=== PATIENT | male | born 1990 | race Caucasian/White ===

== ENCOUNTER 2020-08-23 10:36 | Emergency (ER) | payer OTHER, SELFPAY ==
[2020-08-23 10:53] VITALS: BP 122/72; PULSE 84; RESP 18; TEMP 36.7; O2SAT 99; BMI 30.4
--- NOTE | 2020-08-23 11:02 | ED_ITS ---
HPI - General Adult General Chief complaint: General Medical Stated complaint: MEDICATION Time Seen by Provider: 08/23/20 10:55 Source: patient Mode of arrival: ambulatory Limitations: no limitations History of Present Illness HPI narrative: patient coming from [facility] seeking his dose of suboxone. Patient tells me he was transitioned from [facility] on 08/21 to [facility]. He has been on suboxone for several weeks 12mg/3mg. Last dose 08/20. Unable to get into clinic d/t weekend, here seeking dose. Denies any heroin use since transition. No physical complaints. No SI/HI. Related Data Allergies Allergy/AdvReac Type Severity Reaction Status Date / Time No Known Allergies Allergy Verified 08/23/20 10:56 Review of Systems Review of Systems: Yes all other systems are reviewed and are negative Constitutional: Constitutional: Reports no additional constitutional complaints, Denies body ache(s), Denies chills, Denies fever(s), Denies headache(s) and Denies weakness Eyes: Eyes: Reports no additional eye complaints and Denies change in vision ENT: Reports system reviewed and no additional complaints, except as documented, Denies dizziness, Denies headache(s), Denies nasal congestion, Denies nasal discharge and Denies neck pain Cardiovascular: Cardiovascular: Reports no additional cardiovascular complaints, Denies chest pain, Denies leg edema and Denies dyspnea Respiratory: Respiratory: Reports no additional respiratory complaints, Denies cough and Denies dyspnea Gastrointestinal: Gastrointestinal: Reports no additional gastrointestinal complaints, Denies abdominal pain, Denies diarrhea, Denies nausea and Denies vomiting Genitourinary: Genitourinary: Denies urinary incontinence Musculoskeletal: Musculoskeletal: Reports no additional musculoskeletal complaints, Denies back pain, Denies arthralgias, Denies joint swelling, Denies neck pain, Denies numbness and Denies tingling Integumentary/Breasts: Skin/Breast: Reports system reviewed and no additional complaints, except as docu and Denies rash Neurologic: Reports system reviewed and no additional complaints, except as documented, Denies Abnormal speech present, Denies dizziness, Denies headac he(s), Denies numbness, Denies tingling and Denies weakness [facility] Past Medical History Attestation statement: The following information was validated with the patient. Source: old records reviewed and nursing notes reviewed Medical History No known health problems Social History Social History Alcohol intake: unknown Smoking Status: Unknown if ever smoked Use of substances other than those prescribed or required for medical reasons: No Advance Directives: No Advance Directives Information Provided: No Physical Exam Vital Signs: Vital Signs: Last Vital Signs Temp 98.0 F 08/23/20 10:53 Pulse 84 08/23/20 10:53 Resp 18 08/23/20 10:53 BP 122/72 08/23/20 10:53 Pulse Ox 99 08/23/20 10:53 Body Mass Index 30.4 Const: General: cooperative, healthy appearing, comfortable and no acute distress Orientation/consciousness: patient oriented x3 Limitations: no limitations HENMT: Head: Yes normal to inspection Ears: hearing grossly normal bilaterally General nose exam: Normal external nose present Face and sinus: Yes normal facial exam Mouth: Normal oral and palatal mucosa present Throat: Yes posterior oropharynx normal Eyes: General: appearance normal, both eyes and all related structures Pupils: Equal, round and reactive pupils present Neck: Neck: Yes normal visual inspection Chest: Chest palpation & inspection: normal inspection of the chest Resp: Effort & Inspection: normal respiratory effort Auscultation: clear to auscultation bilaterally Cardio: Rate: regular rate Rhythm: regular rhythm Peripheral pulses: Peripheral pulses 2+ throughout GI: Inspection: Yes normal to inspection Palpation (GI): Soft to palpation and nontender Auscultation: normal bowel sounds Back/Spine/Pelvis: Thoracic/Lumbar Spine: thoracic and lumbar spine normal to inspection Skin: General skin exam: no rashes or lesions noted Neuro: General: patient oriented x3, no focal motor deficits and normal sensation to monofilament Cranial nerves: Yes Equal, round and reactive pupils present Cognition (Neuro): normal cognition Speech: No Abnormal speech present Gait exam (Neuro): Normal gait present Motor exam (neuro): 5/5 motor strength present throughout Extrem: General: Yes normal to inspection Course Course Course Narrative: 30 yo male here seeking suboxone. Given dose as previously noted. Plan to follow-up with clinic here in morning. No other complaints. Reviewed worrisome signs/symptoms with patient and when to return to ED. Comfortable with discharge home. Discharge Plan Discharge Clinical Impression: Opiate use Patient Disposition: Home, Self-Care Instructions: Opioid Use Disorder (ED) Additional Instructions: go to clinic tomorrow You received one dose of suboxone here in the ED Interventions: ED Discharge Assessment Last Done: 08/23/20 11:36 Discharge Date/Time: 08/23/20 11:37
[2020-08-23] MEDS: Buprenorphine/Naloxone 12/3 mg FILM 1 FILM SUBLINGUAL (11:11)
== END 2020-08-23 11:37 | disposition home or self-care (01) ==
PROVIDERS: Emergency Provider Emergency Medicine
DX: F11.10 Opioid abuse, uncomplicated (principal); Z79.899 Other long term (current) drug therapy
CPT/HCPCS: 99283